=== PATIENT | male | born 2005 | race Caucasian/White ===

== ENCOUNTER 2023-05-04 14:21 | Outpatient (CLI) | payer OTHER, SELFPAY ==
--- NOTE | ~2023-05-04 | CT_ITS ---
EXAMINATION: CT brain wo con, CT soft tissue neck wo con DATE: 05/04/2023 14:57 INDICATION: Chronic parotitis TECHNIQUE: 1. Computed tomography (CT) of the head was performed without intravenous contrast. Sagittal and rodolfo nal reconstructions were performed. The mA was adjusted according to patient size. Iterative reconstr uction technique was employed. The dose-length product was 605.33 mGy-cm. 2. CT of the soft tissues of the neck was performed without intravenous contrast. Sagittal and welch l reconstructions were performed. Automated exposure control and iterative reconstruction technique w ere employed. The dose length product was 524.82 mGy-cm. COMPARISON: None FINDINGS: Head: No acute intracranial hemorrhage, acute infarction or abnormal extra axial fluid collection. Ventricl es are normal and symmetric. No mass/mass effect. NECK: Orbits are normal. The paranasal sinuses are clear. Large mucous retention cyst nearly filling the le ft maxillary sinus. Some additional mucosal thickening the posterior left ethmoid sinus. Mastoid air cells and middle ear cavities are clear. Submandibular and parotid glands are normal and symmetric. N o evident surrounding inflammatory stranding or sialolithiasis. Thyroid gland is unremarkable. There are scattered normal-sized lymph nodes in the neck, no lymphadenopathy. No masses identified. Airway and visualized apices of lungs are clear. Visualized superior mediastinum is unremarkable. Visualize d bones are normal. IMPRESSION: 1. Sinus disease. Otherwise normal CT of the head and neck. Reviewed, dictated and finalized at location A. IMPRESSION: 1. Sinus disease. Otherwise normal CT of the head and neck.
== END 2023-05-04 14:22 | disposition home or self-care (01) ==
PROVIDERS: Visit Provider Family Medicine
DX: K11.23 Chronic sialoadenitis (principal); J32.9 Chronic sinusitis, unspecified
CPT/HCPCS: 70450; 70490